=== PATIENT | male | born 1970 | race Caucasian/White ===

== ENCOUNTER 2017-07-24 21:29 | Emergency (ER) | payer OTHER ==
[~2017-07-24] VITALS: Ht 180.3 cm; Wt 65.8 kg
[~2017-07-24 21:29] MED LIST: AMOXICILLIN500 MG ORAL; IBUPROFEN600 MG ORAL; TRAMADOL HCL50 MG ORAL; TYLENOL325 MG ORAL
[2017-07-24] MEDS ORDERED: NKM (21:38)
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
[2017-07-24] MEDS ORDERED: IBUPROFEN600 MG ORAL (22:03)
[2017-07-24 22:10] VITALS: BP 108/76
--- NOTE | 2017-07-25 09:15 | Diagnostic Imaging Report ---
History: Pain. Technique: Frontal, lateral, and oblique views of the right foot are provided. Comparison: No prior study is available for comparison. Findings: Overall bony mineralization is within normal limits. There is no evidence of acute fracture or dislocation. No significant erosive or arthritic change is noted. The soft tissues appear grossly normal. No significant joint effusion is noted. Impression: No evidence of acute fracture or dislocation.
== END 2017-07-24 22:30 | disposition home or self-care (01) ==
LOC: EMR 22:29
DX: S90.31XA Contusion of right foot, initial encounter (principal); V18.0XXA Pedal cycle driver injured in noncollision transport accident in nontraffic accident, initial encounter; Y93.55 Activity, bike riding; F17.200 Nicotine dependence, unspecified, uncomplicated
CPT/HCPCS: 99283